=== PATIENT | female | born 1940 | race Caucasian/White ===

== ENCOUNTER 2023-02-12 15:21 | Emergency (ER) | payer MEDICARE, MEDICAID ==
[~2023-02-12] VITALS: Ht 162.6 cm; Wt 57.3 kg
[~2023-02-12 15:21] MED LIST: ALBU18HF2 INH; APIX5TAB3 PO; ASPI-611 PO; ATOR20TA66 PO; CALC600T22 PO; CYAN250010 PO; DICL100G59 TOP; FLEC50TA PO; FURO40TA4 PO; GABA800T11 PO; HYDR-3968 PO; IPRA3AMP31 NEB; LEVO100T9 PO; LOSA100T58 PO; METO-395 PO; MONT-40 PO; MULT-227 PO; OCUVITE PO; OMEP20CA16 PO
[2023-02-12] MEDS ORDERED: LIDOCAINE 1%/EPI 1:100,000 inj. 10 ML multi-dose vial IJ STA (17:12)
[2023-02-12 17:56] LABS: BASOPHILS % (AUTO) 0.3 % (0-1); EOSINOPHILS # (AUTO) 0.1 X10'3 (0-0.9); EOSINOPHILS % (AUTO) 1.8 % (0-6); HEMATOCRIT 34.4 % (35.0-45.0); HEMOGLOBIN 11.3 g/dl (12.0-16.0); LYMPHOCYTES % (AUTO) 14.4 % (21-51); MEAN CORPUSCULAR HEMOGLOBIN 31.9 PG (27.0-31.0); MEAN CORPUSCULAR HGB CONC 32.9 g/dL (33.0-36.5); MEAN CORPUSCULAR VOLUME 96.9 FL (78-98); MEAN PLATELET VOLUME 9.6 FL (7.4-10.4); MONOCYTES # (AUTO) 0.7 X10'3 (0-0.9); MONOCYTES % (AUTO) 10.1 % (2-12); NEUTROPHILS % (AUTO) 73.4 % (42-75); PLATELET COUNT 182 X10'3 (140-440); RED BLOOD COUNT 3.55 X10'6 (4.20-5.60); RED CELL DISTRIBUTION WIDTH 13.2 % (11.5-14.5); WHITE BLOOD COUNT 6.8 X10'3 (4.5-11.0)
[2023-02-12 18:09] LABS: ALANINE AMINOTRANSFERASE 24 U/L (12-78); ALBUMIN 3.7 G/DL (3.4-5.0); ALBUMIN/GLOBULIN RATIO 1.2 (1.1-1.5); ALKALINE PHOSPHATASE 84 IU/L (46-116); ANION GAP 7 (8-16); ASPARTATE AMINO TRANSFERASE 40 U/L (10-37); BILIRUBIN,TOTAL 1.2 MG/DL (0.1-1.0); BLOOD UREA NITROGEN 7 MG/DL (7-18); BUN/CREATININE RATIO 8.3 (10.0-20.0); CALCIUM 8.9 MG/DL (8.5-10.1); CHLORIDE 96 MMOL/L (99-107); CREATININE 0.84 MG/DL (0.40-0.90); GLUCOSE 112 MG/DL (70-104); POTASSIUM 3.8 MMOL/L (3.5-5.1); SODIUM 133 MMOL/L (135-145); TOTAL CARBON DIOXIDE 30.3 MMOL/L (24-32); TOTAL PROTEIN 6.8 G/DL (6.4-8.2); eCRCL 46 ML/MIN; eGFR 65 ML/MIN
[2023-02-12 20:14] VITALS: BP 124/59; PULSE 68; RESP 19; TEMP 98.4; O2SAT 99
== END 2023-02-12 20:18 | disposition home or self-care (01) ==
LOC: ER 15:22
DX: S01.01XA Laceration without foreign body of scalp, initial encounter (principal); I48.91 Unspecified atrial fibrillation; I10 Essential (primary) hypertension; G89.29 Other chronic pain; Z87.442 Personal history of urinary calculi; Z90.710 Acquired absence of both cervix and uterus; Z79.899 Other long term (current) drug therapy; Z79.82 Long term (current) use of aspirin; Z88.0 Allergy status to penicillin; Z88.8 Allergy status to other drugs, medicaments and biological substances; Z79.01 Long term (current) use of anticoagulants; W01.0XXA Fall on same level from slipping, tripping and stumbling without subsequent striking against object, initial encounter; Z91.81 History of falling; Y93.89 Activity, other specified; Y92.89 Other specified places as the place of occurrence of the external cause; Y99.8 Other external cause status
CPT/HCPCS: 12002; 36415; 70450; 80053; 85025; 99284; A6446; A6449

== ENCOUNTER 2023-11-27 13:34 | Outpatient (CLI) | payer MEDICARE, MEDICAID ==
[~2023-11-27 13:34] MED LIST changes: -IPRA3AMP31 NEB
== END 2023-11-27 23:59 | disposition home or self-care (01) ==
LOC: MRI 13:34
PROVIDERS: ATTEND Student in an Organized Health Care Education/Training Program
DX: S83.281A Other tear of lateral meniscus, current injury, right knee, initial encounter (principal); S83.511A Sprain of anterior cruciate ligament of right knee, initial encounter; M25.461 Effusion, right knee; M25.30 Other instability, unspecified joint; X58.XXXA Exposure to other specified factors, initial encounter; Y93.89 Activity, other specified; Y92.89 Other specified places as the place of occurrence of the external cause; Y99.8 Other external cause status
CPT/HCPCS: 73721

== ENCOUNTER 2024-09-16 12:46 | Emergency (ER) | payer MEDICARE, MEDICAID ==
[~2024-09-16] VITALS: Ht 162.6 cm; Wt 53.6 kg
[~2024-09-16 12:46] MED LIST changes: +GABA-1555 PO; -GABA800T11 PO
--- NOTE | 2024-09-16 13:51 | RADIOLOGY REPORT ---
CLINICAL INDICATION: fall on thinner TECHNIQUE: AP view of the pelvis and AP and frogleg lateral views of the right hip were performed. D I HIP UNILATERAL 2 VIEWS Comparison: None FINDINGS/IMPRESSION: 1. No acute fracture of the pelvis or hips. 2. Mild degenerative changes of the sacroiliac joints. No significant degenerative changes of the hi ps. 3. Advanced lower lumbar degenerative disc disease, not fully imaged here.
--- NOTE | 2024-09-16 13:58 | RADIOLOGY REPORT ---
Indication: fall on thinner Technique[facility] Comparison: None FINDINGS/IMPRESSION: Overall limited characterization secondary to underlying osteopenia. 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 Chronic appearing L1 compression deformity with 30% loss height. Chronic appea ring T12 compression deformity with 80% loss height. Moderate to severe multilevel disc space narrowing with vacuum disc phenomena. Thoracic dextrocurvat ure. Moderate bilateral sacroiliac degenerative joint disease. Large volume stool within the colon. If there is concern for acute compression fracture MRI of the thoracic/lumbar spine can be obtained t o evaluate.
--- NOTE | 2024-09-16 15:16 | Physician Documentation ---
History of Present Illness ~ Chief Complaint: Mechanical Fall Stated Complaint: LEG PAIN Time Seen by MD: 15:05 Primary Medical Doctor: Dr Leach Source: patient, family Mode of Arrival: EMS Exam Limitations: no limitations HPI Patient who had a mechanical fall last week. She denies any pain. She is here because she has bruising on her right leg that is increased over the past couple of days and she is on blood thinners. She just is concerned that it could be a problem. History of old fractures in her back. Tetanus within 5 Years?: No Medication Reconciliation Allergies: Coded Allergies: NSAIDS (Non-Steroidal Anti-Inflamma (Verified Allergy, Unknown, 09/16/24) Penicillins (Verified Allergy, Unknown, HIVES, 09/16/24) pantoprazole (Verified Adverse Reaction, Intermediate, diarrhea, 09/16/24) Uncoded Allergies: LACTOSE INTOLERANT (Allergy, Mild, 10/27/10) Scheduled Apixaban (Eliquis), 1 TAB PO Q12H, (Reported) Aspirin (Aspir 81), 1 TAB PO DAILY, (Reported) Atorvastatin Calcium (LIPITOR tablet), 20 MG PO DAILY, (Reported) Beta-Carotene(A) W-C & E/Min (Ocuvite), 1 EACH PO DAILY, (Reported) Calcium Carbonate (Calcium), 1 TAB PO Q12H Cyanocobalamin (Vitamin B-12) (Vitamin B12), 1,000 UNITS PO DAILY, (Reported) Flecainide Acetate (Flecainide Acetate), 1 TAB PO BID, (Reported) Furosemide (Furosemide), 0.5 TAB PO DAILY Gabapentin (Gabapentin), 1 TAB PO HS Levothyroxine Sodium (Levothyroxine Sodium), 1 TAB PO DAILY, (Reported) Losartan Potassium (Losartan Potassium), 1 TAB PO DAILY, (Reported) Metoprolol Succinate (Metoprolol Succinate), 1 TAB PO BID, (Reported) Montelukast Sodium (Montelukast Sodium), 1 TAB PO QPM, (Reported) Multivitamins (Multiple Vitamin), 1 TAB PO DAILY, (Reported) Omeprazole (Omeprazole), 1 CAP PO DAILY, (Reported) Scheduled PRN Albuterol Sulfate (Ventolin Hfa), 2 PUFFS INH Q6H PRN for SOB or wheezing, (Reported) Diclofenac Sodium (Diclofenac Sodium), 1 APPLIC TOP PRN PRN for pain, (Reported) Hydrocodone Bit/Acetaminophen (Hydrocodon-Acetaminoph 7.5-325), 1 TAB PO Q6H PRN for severe pain (7-10), (Reported) Past Medical History Past Medical History: Atrial Fibrillation, Hypertension, Peptic Ulcer Disease, UTI, Thyroid (unspecified), Chronic Back Pain, Depression Past Surgical History: hysterectomy, orthopedic surgeries, other Alcohol Use: None Drug Use: none Lives with: Alone Lives In: Home Occupation: retired Review of Systems All Other Systems at this time: Reviewed and Negative Physical Exam Vital Signs: Temperature: 98.1, Source: Temporal, Heart Rate: 50, Respiratory Rate: 12, BP: 149/60, Pulse Oximetry: 96, Weight: 53.640 Oxygen Flow Rate: 0 General Appearance: alert, WD/WN Head: no evidence of injury Face: normal Pupils/EOM/Fundus: PERRLA, EOM intact Neck: non-tender Respiratory: lungs clear, normal breath sounds Chest: normal inspection Cardiovascular: regular rate, rhythm, no murmur Gastrointestinal: normal palpation, non-tender Extremities Right lower extremity: Ecchymosis over the right buttock and down the lateral thigh and circumferentially around the lower extremity to the ankle, good pulses and sensation, no swelling, no induration Skin: warm/dry Neurologic: oriented x4, memory intact Motor / Sensory: no motor deficit, no sensory deficit Cerebellar function exam: normal Thoughts/Hallucinations: normal thought pattern Affect: appropriate Progress Progress Note Patient with a fall last Monday and x-rays of the thoracic and lumbar region and the hips show chronic compression fractures. No acute fracture. Large ecchymosis over right leg but no sign of infection, swelling, fracture or compartment syndrome. Good pulses and color otherwise. Warm to the touch. No concern at this time. Offered reassurance to patient and her family. Discharged home in good condition. Follow up with PCP in 7-10 days or return here if new or worsening symptoms. Results/Orders Results/Orders Vital Signs 09/16/24 09/16/24 09/16/24 09/16/24 13:01 14:31 14:35 15:29 Temp 98.1 98.1 Pulse 58 50 59 Resp 16 12 14 B/P (MAP) 160/51 149/60 (89) 169/74 Pulse Ox 94 96 100 O2 Flow Rate 0 0 Departure Disposition: 01 HOME / SELF CARE / HOMELESS Impression: Primary Impression: Contusion of right leg Qualified Codes: S80.11XA - Contusion of right lower leg, initial encounter Condition: Stable Discharge Instructions: Contusion Additional Instructions: Follow up with your doctor in 7-10 days. Return here if new or worsening symptoms prior to follow-up. Referrals: NO PRIMARY CARE PROVIDER (PCP) Education Educated: Patient, Family Educated regarding: diagnosis, treatment, prognosis, need for follow up Signature Scribe Signature: No scribe used Attestation: No scribe used [facility] MD Sep 16, 2024 15:16
[2024-09-16 15:29] VITALS: BP 169/74; PULSE 59; RESP 14; TEMP 98.1; O2SAT 100
== END 2024-09-16 15:25 | disposition home or self-care (01) ==
LOC: ER 12:47
DX: S80.11XA Contusion of right lower leg, initial encounter (principal); I10 Essential (primary) hypertension; I48.91 Unspecified atrial fibrillation; Z79.01 Long term (current) use of anticoagulants; Z87.11 Personal history of peptic ulcer disease; Z88.0 Allergy status to penicillin; Z88.6 Allergy status to analgesic agent; Z88.8 Allergy status to other drugs, medicaments and biological substances; Z90.710 Acquired absence of both cervix and uterus; W01.0XXA Fall on same level from slipping, tripping and stumbling without subsequent striking against object, initial encounter; Y93.89 Activity, other specified; Y92.89 Other specified places as the place of occurrence of the external cause; Y99.8 Other external cause status
CPT/HCPCS: 72100; 73502; 99284